=== PATIENT | female | born 1945 | race Caucasian/White ===

== ENCOUNTER 2020-11-30 16:44 | Inpatient (IN) | payer OTHER, SELFPAY ==
[~2020-11-30] VITALS: Ht 160 cm; Wt 101.2 kg
[2020-11-30 04:00] VITALS: BP_SYST 203
[2020-11-30 16:50] VITALS: BP_SYST 196
[2020-11-30 17:12] LABS: BASOPHILS # (AUTO) 0.1 K/uL (0.0-0.2); BASOPHILS % (AUTO) 1.7 % (0.0-2.0); EOSINOPHILS # (AUTO) 0.4 K/uL (0.0-0.4); EOSINOPHILS % (AUTO) 4.4 % (0.0-4.0); HEMATOCRIT 29.1 % (36-48); HEMOGLOBIN 9.7 g/dL (12.0-16.0); LYMPHOCYTES # (AUTO) 2.2 K/uL (1.0-5.5); LYMPHOCYTES % (AUTO) 25.4 % (20.5-51.5); MEAN CORPUSCULAR HEMOGLOBIN 31 pg (27-31); MEAN CORPUSCULAR HGB CONC 33 % (32-36); MEAN CORPUSCULAR VOLUME 93 fL (79.0-98.0); MONOCYTES # (AUTO) 0.6 K/uL (0.0-1.0); MONOCYTES % (AUTO) 6.7 % (1.7-9.3); NEUTROPHILS # (AUTO) 5.4 K/uL (1.8-7.7); NEUTROPHILS % (AUTO) 61.8 % (40.0-70.0); PLATELET COUNT (AUTO) 215 K/uL (130-430); RED BLOOD CELL COUNT(AUTO) 3.13 MIL/uL (4.2-6.2); RED CELL DISTRIBUTION WIDTH 14.6 % (9.0-15.0); WHITE BLOOD COUNT (AUTO) 8.8 K/uL (4.8-10.8)
[2020-11-30 17:20] LABS: BILIRUBIN,URINE NEGATIVE (NEGATIVE); COLOR,URINE YELLOW (YELLOW); GLUCOSE,URINE 1+ (NEGATIVE); KETONES,URINE NEGATIVE (NEGATIVE); NITRITE, URINE POSITIVE (NEGATIVE); PROTEIN URINE 3+ (NEGATIVE); UROBILINOGEN,URINE 0.2 (0.2-1.0)
[2020-11-30 17:23] LABS: BLOOD, URINE TRACE (NEGATIVE); CLARITY/URINE HAZY (CLEAR); LEUKOCYTE ESTERASE ,URINE 2+ (NEGATIVE)
[2020-11-30 17:25] LABS: BACTERIA,URINE MANY /HPF (None Seen); MUCUS,URINE None Seen /LPF (None Seen); RBC,URINE 0-3 /HPF (0-3); WBC,URINE 20-50 /HPF (0-3)
[2020-11-30 17:26] LABS: PROTHROMBIN TIME 9.8 SECS (9.5-12.5)
[2020-11-30 17:29] LABS: ANION GAP 10 (5-15); CALCIUM 8.3 mg/dL (8.4-11.0); CHLORIDE 108 mmol/L (98-107); CREATININE 2.92 mg/dL (0.55-1.30); GLUCOSE 149 mg/dL (70-99); POTASSIUM 5.3 mmol/L (3.5-5.1); SODIUM SERUM 139 mmol/L (136-145); UREA NITROGEN, BLOOD 51 mg/dL (8-21)
[2020-11-30 17:32] LABS: ALANINE AMINOTRANSFERASE 21 U/L (12-78); ASPARTATE AMINOTRANSFERASE 14 U/L (10-37); TOTAL BILIRUBIN 0.3 mg/dL (0.0-1.0)
[2020-11-30] MEDS ORDERED: cefTRIAXone 1 GM in D5W 50 ML IV ONE (17:45)
[2020-11-30] MEDS ORDERED: NACL 0.9% 1,000 ML IV ONE (17:45)
[2020-11-30] MEDS ORDERED: INSU100V SQ (17:47)
[2020-11-30] MEDS ORDERED: cefTRIAXone 1 GM VIAL ONE (18:09)
[2020-11-30 22:30] VITALS: BP_SYST 208
[2020-11-30] MEDS ORDERED: PANTOPRAZOLE SODIUM 40 MG TAB PO ONE (22:30)
[2020-11-30] MEDS ORDERED: ASPIRIN 81 MG TABLET(ECOTRIN) PO ONE ×2 (22:30→22:45)
[2020-11-30] MEDS ORDERED: DEXTROSE 50% JECT 50 ML DISP.SYRIN IVP PRN (22:30)
[2020-12-01] VITALS: BP_SYST 158
[2020-12-01] MEDS ORDERED: LEVOFLOXACIN 250 MG/D5W 50 ML IV ONE (00:02)
[2020-12-01] MEDS: 0.45% NACL 1,000 ML IV SCH ×4 (00:16→20:35)
[2020-12-01] MEDS: LEVOFLOXACIN 250 MG/D5W 50 ML IV SCH (00:16)
[2020-12-01] MEDS: cloNIDine HCL 0.1 MG TABLET PO PRN (04:06)
[2020-12-01] MEDS ORDERED: ONDANSETRON HCL 4 MG/2 ML VIAL IVP PRN (04:30)
[2020-12-01] MEDS ORDERED: amLODIPine BESYLATE 10 MG TABLET PO ONE (04:30)
[2020-12-01] MEDS: ACETAMINOPHEN 325 MG TABLET PO PRN (04:35)
[2020-12-01] MEDS ORDERED: hydrALAZINE HCL 20 MG/ML VIAL IVP ONE (04:45)
[2020-12-01] MEDS ORDERED: hydrALAZINE HCL 20 MG/ML VIAL IVP PRN (04:45)
[2020-12-01 06:00] VITALS: BP_SYST 159
[2020-12-01 06:57] LABS: BASOPHILS # (AUTO) 0.1 K/uL (0.0-0.2); BASOPHILS % (AUTO) 0.8 % (0.0-2.0); EOSINOPHILS # (AUTO) 0.2 K/uL (0.0-0.4); EOSINOPHILS % (AUTO) 2.5 % (0.0-4.0); HEMATOCRIT 28.8 % (36-48); HEMOGLOBIN 9.5 g/dL (12.0-16.0); LYMPHOCYTES # (AUTO) 1.8 K/uL (1.0-5.5); LYMPHOCYTES % (AUTO) 20.4 % (20.5-51.5); MEAN CORPUSCULAR HEMOGLOBIN 31 pg (27-31); MEAN CORPUSCULAR HGB CONC 33 % (32-36); MEAN CORPUSCULAR VOLUME 93 fL (79.0-98.0); MONOCYTES # (AUTO) 0.5 K/uL (0.0-1.0); MONOCYTES % (AUTO) 5.4 % (1.7-9.3); NEUTROPHILS # (AUTO) 6.4 K/uL (1.8-7.7); NEUTROPHILS % (AUTO) 70.9 % (40.0-70.0); PLATELET COUNT (AUTO) 207 K/uL (130-430); RED BLOOD CELL COUNT(AUTO) 3.09 MIL/uL (4.2-6.2); RED CELL DISTRIBUTION WIDTH 14.3 % (9.0-15.0); WHITE BLOOD COUNT (AUTO) 9.1 K/uL (4.8-10.8)
[2020-12-01 07:37] LABS: ALANINE AMINOTRANSFERASE 16 U/L (12-78); ALBUMIN 2.8 g/dL (3.4-4.8); ANION GAP 11 (5-15); ASPARTATE AMINOTRANSFERASE 16 U/L (10-37); CALCIUM 8.4 mg/dL (8.4-11.0); CHLORIDE 105 mmol/L (98-107); CHOLESTEROL 173 mg/dL (<200); CREATININE 2.52 mg/dL (0.55-1.30); FREE T4 (FREE THYROXINE) 0.7 ng/dL (0.6-1.6); GLUCOSE 158 mg/dL (70-99); HDL CHOLESTEROL 52 mg/dL (>55); LDL CHOLESTEROL 116 mg/dL (<100); PHOSPHORUS 4.2 mg/dL (2.7-4.5); SODIUM SERUM 136 mmol/L (136-145); THYROID STIMULATING HORMONE 7.34 uIu/mL (0.34-4.82); TOTAL BILIRUBIN 0.4 mg/dL (0.0-1.0); TRIGLYCERIDES 87 mg/dL (30-150); UREA NITROGEN, BLOOD 46 mg/dL (8-21); URIC ACID 5.5 mg/dL (2.4-7.0)
[2020-12-01 07:45] LABS: TOTAL IRON BIND. CAPACITY 232 ug/dL (250-450)
[2020-12-01 08:00] VITALS: BP_SYST 159
[2020-12-01] MEDS: PANTOPRAZOLE SODIUM 40 MG TAB PO SCH (08:20)
[2020-12-01] MEDS: amLODIPine BESYLATE 10 MG TABLET PO SCH (08:21)
[2020-12-01] MEDS: NEPHROVITE, (FOLIC ACID/VITAMIN B COMP W-C 1 TAB) PO SCH (08:21)
[2020-12-01 08:33] LABS: ACETONE, SERUM NEGATIVE (NEGATIVE)
[2020-12-01] MEDS ORDERED: ASPIRIN 81 MG TABLET(ECOTRIN) PO SCH (09:00)
[2020-12-01 11:23] VITALS: BP_SYST 134
[2020-12-01] MEDS: INSULIN REGULAR, HUMAN 100 UNITS/ML, 10 ML VIAL (humuLIN R) SUBCUT PRN ×3 (12:02→20:34)
[2020-12-01] MEDS ORDERED: HEPARIN SODIUM,PORCINE 5,000 UNITS/ML VIAL SUBCUT ONE (14:45)
[2020-12-01 15:21] VITALS: BP_SYST 109
[2020-12-01 20:00] VITALS: BP_SYST 114
[2020-12-01] MEDS: HEPARIN SODIUM,PORCINE 5,000 UNITS/ML VIAL SUBCUT SCH (20:31)
[2020-12-02 00:55] VITALS: BP_SYST 129
[2020-12-02] MEDS: 0.45% NACL 1,000 ML IV SCH ×4 (01:10→21:10)
[2020-12-02] MEDS: ACETAMINOPHEN 325 MG TABLET PO PRN (03:52)
[2020-12-02 06:55] LABS: BASOPHILS % (AUTO) 0.6 % (0.0-2.0); EOSINOPHILS # (AUTO) 0.2 K/uL (0.0-0.4); EOSINOPHILS % (AUTO) 1.9 % (0.0-4.0); HEMATOCRIT 27.9 % (36-48); HEMOGLOBIN 9.2 g/dL (12.0-16.0); LYMPHOCYTES # (AUTO) 1.4 K/uL (1.0-5.5); LYMPHOCYTES % (AUTO) 17.4 % (20.5-51.5); MEAN CORPUSCULAR HEMOGLOBIN 31 pg (27-31); MEAN CORPUSCULAR HGB CONC 33 % (32-36); MEAN CORPUSCULAR VOLUME 93 fL (79.0-98.0); MONOCYTES # (AUTO) 0.4 K/uL (0.0-1.0); MONOCYTES % (AUTO) 5.4 % (1.7-9.3); NEUTROPHILS # (AUTO) 5.9 K/uL (1.8-7.7); NEUTROPHILS % (AUTO) 74.7 % (40.0-70.0); PLATELET COUNT (AUTO) 208 K/uL (130-430); RED BLOOD CELL COUNT(AUTO) 2.99 MIL/uL (4.2-6.2); RED CELL DISTRIBUTION WIDTH 14.5 % (9.0-15.0); WHITE BLOOD COUNT (AUTO) 7.9 K/uL (4.8-10.8)
[2020-12-02 07:29] LABS: ANION GAP 10 (5-15); CALCIUM 8.8 mg/dL (8.4-11.0); CHLORIDE 107 mmol/L (98-107); CREATININE 2.78 mg/dL (0.55-1.30); GLUCOSE 167 mg/dL (70-99); POTASSIUM 5.4 mmol/L (3.5-5.1); SODIUM SERUM 137 mmol/L (136-145); UREA NITROGEN, BLOOD 48 mg/dL (8-21)
[2020-12-02 07:50] VITALS: BP_SYST 158
[2020-12-02] MEDS: PANTOPRAZOLE SODIUM 40 MG TAB PO SCH (08:27)
[2020-12-02] MEDS: ASPIRIN 81 MG TAB.CHEW PO SCH (08:27)
[2020-12-02] MEDS: NEPHROVITE, (FOLIC ACID/VITAMIN B COMP W-C 1 TAB) PO SCH (08:27)
[2020-12-02] MEDS: amLODIPine BESYLATE 10 MG TABLET PO SCH (08:28)
[2020-12-02] MEDS: ATORVASTATIN 20 MG TABLET PO SCH (08:28)
[2020-12-02] MEDS: HEPARIN SODIUM,PORCINE 5,000 UNITS/ML VIAL SUBCUT SCH ×2 (08:29→21:30)
[2020-12-02] MEDS ORDERED: SODIUM POLYSTYRENE SULFONATE 15 GM/60 ML UDBTL PO ONE (09:45)
[2020-12-02 10:24] LABS: HEMOGLOBIN A1C 8.7 % (4.8-5.6)
[2020-12-02 12:13] VITALS: BP_SYST 152
[2020-12-02] MEDS: INSULIN REGULAR, HUMAN 100 UNITS/ML, 10 ML VIAL (humuLIN R) SUBCUT PRN ×2 (12:30→21:34)
[2020-12-02] MEDS ORDERED: DOCUSATE SODIUM 250 MG CAPSULE PO ONE (14:30)
[2020-12-02] MEDS ORDERED: CHOLECALCIFEROL (VITAMIN D3) 2,000 UNIT TABLET PO ONE (14:30)
[2020-12-02 15:12] VITALS: BP_SYST 168
[2020-12-02] MEDS: cefTRIAXone 1 GM in D5W 50 ML IV SCH (17:31)
[2020-12-02 20:00] VITALS: BP_SYST 156
[2020-12-02] MEDS: LEVOFLOXACIN 250 MG/D5W 50 ML IV SCH (22:46)
[2020-12-03] VITALS: BP_SYST 156
[2020-12-03] MEDS: 0.45% NACL 1,000 ML IV SCH ×2 (01:55→09:23)
[2020-12-03] MEDS: ACETAMINOPHEN 325 MG TABLET PO PRN (04:30)
[2020-12-03] MEDS: LEVOTHYROXINE SODIUM 0.025 MG TABLET PO SCH (06:10)
[2020-12-03 06:17] LABS: BASOPHILS # (AUTO) 0.1 K/uL (0.0-0.2); BASOPHILS % (AUTO) 0.9 % (0.0-2.0); EOSINOPHILS # (AUTO) 0.3 K/uL (0.0-0.4); EOSINOPHILS % (AUTO) 3.8 % (0.0-4.0); HEMATOCRIT 27.8 % (36-48); HEMOGLOBIN 9.1 g/dL (12.0-16.0); LYMPHOCYTES # (AUTO) 1.6 K/uL (1.0-5.5); LYMPHOCYTES % (AUTO) 20.3 % (20.5-51.5); MEAN CORPUSCULAR HEMOGLOBIN 30 pg (27-31); MEAN CORPUSCULAR HGB CONC 33 % (32-36); MEAN CORPUSCULAR VOLUME 93 fL (79.0-98.0); MONOCYTES # (AUTO) 0.5 K/uL (0.0-1.0); MONOCYTES % (AUTO) 6.7 % (1.7-9.3); NEUTROPHILS # (AUTO) 5.3 K/uL (1.8-7.7); NEUTROPHILS % (AUTO) 68.3 % (40.0-70.0); PLATELET COUNT (AUTO) 213 K/uL (130-430); RED CELL DISTRIBUTION WIDTH 14.4 % (9.0-15.0); WHITE BLOOD COUNT (AUTO) 7.7 K/uL (4.8-10.8)
[2020-12-03 06:28] LABS: ANION GAP 12 (5-15); CALCIUM 8.4 mg/dL (8.4-11.0); CHLORIDE 105 mmol/L (98-107); CREATININE 2.74 mg/dL (0.55-1.30); GLUCOSE 166 mg/dL (70-99); PHOSPHORUS 3.8 mg/dL (2.7-4.5); SODIUM SERUM 138 mmol/L (136-145); UREA NITROGEN, BLOOD 49 mg/dL (8-21)
[2020-12-03 08:00] VITALS: BP_SYST 176
[2020-12-03] MEDS: NEPHROVITE, (FOLIC ACID/VITAMIN B COMP W-C 1 TAB) PO SCH (09:14)
[2020-12-03] MEDS: CHOLECALCIFEROL (VITAMIN D3) 2,000 UNIT TABLET PO SCH (09:14)
[2020-12-03] MEDS: cloNIDine HCL 0.1 MG TABLET PO PRN (09:14)
[2020-12-03] MEDS: ASPIRIN 81 MG TAB.CHEW PO SCH (09:15)
[2020-12-03] MEDS: ATORVASTATIN 20 MG TABLET PO SCH (09:15)
[2020-12-03] MEDS: amLODIPine BESYLATE 10 MG TABLET PO SCH (09:16)
[2020-12-03] MEDS: PANTOPRAZOLE SODIUM 40 MG TAB PO SCH (09:16)
[2020-12-03] MEDS: DOCUSATE SODIUM 250 MG CAPSULE PO SCH ×2 (09:16→22:39)
[2020-12-03] MEDS: HEPARIN SODIUM,PORCINE 5,000 UNITS/ML VIAL SUBCUT SCH ×2 (09:18→22:41)
[2020-12-03] MEDS ORDERED: SODIUM POLYSTYRENE SULFONATE 15 GM/60 ML UDBTL PO ONE (09:30)
[2020-12-03] MEDS ORDERED: hydrALAZINE HCL 25 MG TABLET PO ONE (09:45)
[2020-12-03] MEDS ORDERED: ACETAMINOPHEN 650 MG/20.3 ML UDC GT PRN (10:00)
[2020-12-03 11:28] VITALS: BP_SYST 154
[2020-12-03] MEDS: INSULIN REGULAR, HUMAN 100 UNITS/ML, 10 ML VIAL (humuLIN R) SUBCUT PRN (11:59)
[2020-12-03 15:31] VITALS: BP_SYST 138
[2020-12-03] MEDS: cefTRIAXone 1 GM in D5W 50 ML IV SCH (15:38)
[2020-12-03] MEDS: hydrALAZINE HCL 25 MG TABLET PO SCH ×2 (15:39→22:46)
[2020-12-03] MEDS ORDERED: NATEGLINIDE 60 MG TABLET PO SCH (17:00)
[2020-12-03] MEDS ORDERED: NATEGLINIDE 120 MG TABLET PO SCH (17:01)
[2020-12-03] MEDS ORDERED: NATEGLINIDE 120 MG TABLET PO ONE (17:15)
[2020-12-03 20:00] VITALS: BP_SYST 157
[2020-12-04] MEDS: 0.45% NACL 1,000 ML IV SCH (00:08)
[2020-12-04 00:30] VITALS: BP_SYST 157
[2020-12-04] MEDS: NATEGLINIDE 120 MG TABLET PO SCH ×2 (06:34→11:32)
[2020-12-04] MEDS: hydrALAZINE HCL 25 MG TABLET PO SCH (06:34)
[2020-12-04] MEDS: LEVOTHYROXINE SODIUM 0.025 MG TABLET PO SCH (06:34)
[2020-12-04 06:47] LABS: BASOPHILS # (AUTO) 0.1 K/uL (0.0-0.2); BASOPHILS % (AUTO) 1.1 % (0.0-2.0); EOSINOPHILS # (AUTO) 0.3 K/uL (0.0-0.4); EOSINOPHILS % (AUTO) 4.5 % (0.0-4.0); HEMATOCRIT 26.5 % (36-48); HEMOGLOBIN 8.7 g/dL (12.0-16.0); LYMPHOCYTES # (AUTO) 1.4 K/uL (1.0-5.5); LYMPHOCYTES % (AUTO) 19.5 % (20.5-51.5); MEAN CORPUSCULAR HEMOGLOBIN 31 pg (27-31); MEAN CORPUSCULAR HGB CONC 33 % (32-36); MEAN CORPUSCULAR VOLUME 93 fL (79.0-98.0); MONOCYTES # (AUTO) 0.6 K/uL (0.0-1.0); MONOCYTES % (AUTO) 7.9 % (1.7-9.3); PLATELET COUNT (AUTO) 191 K/uL (130-430); RED BLOOD CELL COUNT(AUTO) 2.84 MIL/uL (4.2-6.2); RED CELL DISTRIBUTION WIDTH 14.2 % (9.0-15.0); WHITE BLOOD COUNT (AUTO) 7.4 K/uL (4.8-10.8)
[2020-12-04 07:09] LABS: ANION GAP 12 (5-15); CALCIUM 8.3 mg/dL (8.4-11.0); CHLORIDE 107 mmol/L (98-107); CREATININE 2.83 mg/dL (0.55-1.30); GLUCOSE 184 mg/dL (70-99); POTASSIUM 4.6 mmol/L (3.5-5.1); SODIUM SERUM 139 mmol/L (136-145); UREA NITROGEN, BLOOD 47 mg/dL (8-21)
[2020-12-04 08:00] VITALS: BP_SYST 160
[2020-12-04] MEDS: NEPHROVITE, (FOLIC ACID/VITAMIN B COMP W-C 1 TAB) PO SCH (08:36)
[2020-12-04] MEDS: CHOLECALCIFEROL (VITAMIN D3) 2,000 UNIT TABLET PO SCH (08:36)
[2020-12-04] MEDS: amLODIPine BESYLATE 10 MG TABLET PO SCH (08:36)
[2020-12-04] MEDS: ATORVASTATIN 20 MG TABLET PO SCH (08:36)
[2020-12-04] MEDS: DOCUSATE SODIUM 250 MG CAPSULE PO SCH (08:36)
[2020-12-04] MEDS: PANTOPRAZOLE SODIUM 40 MG TAB PO SCH (08:36)
[2020-12-04] MEDS: ASPIRIN 81 MG TAB.CHEW PO SCH (08:37)
[2020-12-04] MEDS: HEPARIN SODIUM,PORCINE 5,000 UNITS/ML VIAL SUBCUT SCH (08:38)
[2020-12-04] MEDS ORDERED: CARVEDILOL 3.125 MG TABLET (COREG) PO ONE (11:00)
[2020-12-04] MEDS ORDERED: NEPH PO (11:30)
[2020-12-04] MEDS ORDERED: HYDR-4038 PO (11:30)
[2020-12-04] MEDS ORDERED: STA120 PO (11:30)
[2020-12-04] MEDS ORDERED: LEVO25TA2 PO (11:30)
[2020-12-04] MEDS ORDERED: PRO40 PO (11:30)
[2020-12-04] MEDS ORDERED: COR3.125 PO (11:30)
[2020-12-04] MEDS ORDERED: NOR10 PO (11:30)
[2020-12-04] MEDS ORDERED: VITD2000 PO (11:30)
[2020-12-04] MEDS ORDERED: LIP20 PO (11:30)
[2020-12-04] MEDS ORDERED: ASA81 PO (11:30)
[2020-12-04 12:28] VITALS: BP_SYST 154
[2020-12-04] MEDS ORDERED: LEVO250T58 PO (13:01)
[2020-12-04 14:22] VITALS: BP_SYST 154
[2020-12-04] MEDS ORDERED: CARVEDILOL 3.125 MG TABLET (COREG) PO SCH (21:00)
[2020-12-07 10:11] LABS: PATIENT WEIGHT 223 LBS
[2020-12-07 10:13] LABS: TOTAL VOLUME 24HRS,URINE 2050 mL
[2020-12-07 10:14] LABS: CREATININE CLEARANCE,URINE 13.2 ml/min (80-120); TPROTEIN U,24HR 3681.8 mg/24HR (0-130)
== END 2020-12-04 15:20 | disposition home health service (06) | DRG 64 ==
LOC: SED 16:53 → STU 20:46 → SMU 12-03 11:27
PROVIDERS: ADMIT Internal Medicine; ATTEND Internal Medicine
DX: I63.9 Cerebral infarction, unspecified (principal); N17.0 Acute kidney failure with tubular necrosis; E44.1 Mild protein-calorie malnutrition; N12 Tubulo-interstitial nephritis, not specified as acute or chronic; E86.0 Dehydration; E87.5 Hyperkalemia; D64.9 Anemia, unspecified; E66.9 Obesity, unspecified; D63.8 Anemia in other chronic diseases classified elsewhere; Z20.822 Contact with and (suspected) exposure to COVID-19; R29.701 NIHSS score 1; R47.81 Slurred speech; I12.9 Hypertensive chronic kidney disease with stage 1 through stage 4 chronic kidney disease, or unspecified chronic kidney disease; E11.22 Type 2 diabetes mellitus with diabetic chronic kidney disease; N18.9 Chronic kidney disease, unspecified; Z79.4 Long term (current) use of insulin; Z79.899 Other long term (current) drug therapy; Z68.39 Body mass index [BMI] 39.0-39.9, adult
CPT/HCPCS: 36415; 70450-TC; 70551; 71045; 76376; 76770; 80048; 80053; 80061; 81000; 82009; 82140; 82306; 82575; 82607; 82962; 83036; 83540; 83550; 83605; 83880; 84100; 84156; 84439; 84443; 84484; 84550; 85025; 85379; 85610-TC; 85730-TC; 87040-TC; 87086; 92610-GN; 93005; 93306; 93880; 96365; 97110-GP; 97116-GP; 97163; 97530-GP; 99285; G0378; J0360; J0696; J1644; J1815; J1956; J2405; J7030; J7040; J7060